=== PATIENT | male | born 1950 | race Caucasian/White ===

== ENCOUNTER 2018-04-13 16:48 | Emergency (ER) | payer MEDICARE ==
[~2018-04-13] VITALS: Ht 167.6 cm; Wt 99.6 kg
[~2018-04-13 16:48] MED LIST: ASPI325T17 PO; ATEN50TA41 PO; BUPR150T73 PO; CINN500C2 PO; DOXA4TAB3 PO; FLUT16SP2 NAS; LAMO200T3 PO; LAMO25TA5 PO; LISI40TA PO; LOVA40TA2 PO; OMEG500C3 PO; SAW160CA4 PO; TERA5CAP3 PO; TRIA1TAB3 PO
[2018-04-13 17:24] LABS: BASOPHILS # (AUTO) 0.01 x10^3/uL (0-0.1); BASOPHILS % (AUTO) 0 % (0-1); EOSINOPHILS # (AUTO) 0.18 x10^3/uL (0-0.4); EOSINOPHILS % (AUTO) 2 % (1-7); LYMPHOCYTES # (AUTO) 0.77 x10^3/uL (1-3.4); LYMPHOCYTES % (AUTO) 11 % (22-44); MD NO; MEAN CORPUSCULAR HEMOGLOBIN 31.1 pg (27.5-34.5); MEAN CORPUSCULAR HGB CONC 34.4 g/dL (33.2-36.2); MEAN CORPUSCULAR VOLUME 90.4 fL (81-97); MEAN PLATELET VOLUME 7.3 fL (7.4-10.4); MONOCYTES # (AUTO) 1.01 x10^3/uL (0.2-0.8); MONOCYTES % (AUTO) 14 % (2-9); NEUTROPHILS # (AUTO) 5.32 x10^3/uL (1.8-6.8); NEUTROPHILS % (AUTO) 73 % (42-75); PLATELET COUNT 165 x10^3/uL (130-400); RED BLOOD COUNT 5.21 x10^6/uL (4.38-5.82); RED CELL DISTRIBUTION WIDTH 12.7 % (9.4-14.8)
[2018-04-13] MEDS ORDERED: SODIUM CHLORIDE FLUSH 10ML SYR IVF ONE (17:30)
[2018-04-13 17:32] LABS: INTERNATIONAL NORMALIZED RATIO 0.99 (0.93-1.1); PROTHROMBIN TIME 10.3 Seconds (9.6-11.5)
[2018-04-13 17:35] LABS: ANION GAP 8 mmol/L (5-15); CALCIUM 8.3 mg/dL (8.5-10.1); CHLORIDE 116 mmol/L (98-107); CREATININE 0.99 mg/dL (0.7-1.3)
[2018-04-13 17:36] LABS: ALANINE AMINOTRANSFERASE 33 U/L (12-78); ALBUMIN 3.4 g/dL (3.4-5.0)
[2018-04-13 17:38] LABS: ALKALINE PHOSPHATASE 64 U/L (45-117); BILIRUBIN,TOTAL 0.7 mg/dL (0.2-1.0); TOTAL PROTEIN 6.7 g/dL (6.4-8.2)
[2018-04-13] MEDS ORDERED: BUPR200T2 PO (18:04)
[2018-04-13] MEDS ORDERED: LAMO150T3 PO (18:04)
[2018-04-13 18:17] VITALS: BP 118/60
[2018-04-13] MEDS ORDERED: SODIUM CHLORIDE 0.9% 1,000ML IVBOLUS ONE (18:30)
[2018-04-13 20:29] LABS: MICROSCOPIC NOT IND
[2018-04-13 20:32] LABS: CULTURE INDICATED? NO
[2018-04-13] MEDS ORDERED: OMNIPAQUE 350 MG/ML, 100ML BOTTLE ONE (23:38)
== END 2018-04-13 21:17 | disposition home or self-care (01) ==
LOC: ED 18:23
DX: R19.7 Diarrhea, unspecified (principal); N28.1 Cyst of kidney, acquired; I10 Essential (primary) hypertension; E11.9 Type 2 diabetes mellitus without complications; R79.1 Abnormal coagulation profile; Z86.73 Personal history of transient ischemic attack (TIA), and cerebral infarction without residual deficits
CPT/HCPCS: 36415; 74177; 80053; 81003; 83690; 85025; 85610; 85730; 96360; 96361; 99285; J7030; Q9967

== ENCOUNTER 2021-03-20 14:57 | Observation (INO) | payer MEDICARE ==
[~2021-03-20] VITALS: Ht 167.6 cm; Wt 102.3 kg
[~2021-03-20 14:57] MED LIST changes: +BUPR200T2 PO; +LAMO150T3 PO; -LISI40TA PO; +LISI40TA9 PO
--- NOTE | 2021-03-20 16:00 | NUR ---
Pt reports L side eye droop starting yesterday. Denies all other s/sx including no n/v, PINZON, dizziness, vision changes, loss for words. Pt states his L eye is sensitive to light, PERRLA noted. Pt states his L eye vision is impaired due to the lid drooping, but when this RN lifted eye pt denied any vision compromise. Mild periorbital swelling noted, pt reports his eye stinging when he "put drops in it yesterday."
--- NOTE | 2021-03-20 16:26 | NUR ---
Pt ambulatory to bathroom for UA and now pt to imaging.
[2021-03-20 16:44] LABS: MICROSCOPIC NOT IND
--- NOTE | 2021-03-20 18:02 | NUR ---
Pt to imaging.
[2021-03-20 18:17] LABS: HCT (SEDRATE) 46.3 % (39.2-51.8)
[2021-03-20 18:29] LABS: C-REACTIVE PROTEIN, QUANT 0.05 mg/dL (0.02-0.49)
[2021-03-20 18:39] LABS: FREE T4 (FREE THYROXINE) 0.74 ng/dL (0.76-1.46)
[2021-03-20] MEDS ORDERED: GADOTERATE 10 MMOL/20ML SYR ONE (18:41)
[2021-03-20 18:44] LABS: BASOPHILS % (AUTO) 1 % (0-1); EOSINOPHILS % (AUTO) 5 % (1-7); LYMPHOCYTES % (AUTO) 17 % (22-44); MEAN CORPUSCULAR HGB CONC 34.9 g/dL (33.2-36.2); MEAN PLATELET VOLUME 7.3 fL (7.4-10.4); MONOCYTES % (AUTO) 12 % (2-9); NEUTROPHILS % (AUTO) 65 % (42-75); PLATELET COUNT 151 x10^3/uL (130-400); RED BLOOD COUNT 5.21 x10^6/uL (4.38-5.82)
--- NOTE | 2021-03-20 19:02 | NUR ---
Pt remains in imaging. Report given to josef RN and FARZANA Anne RN.
--- NOTE | 2021-03-20 19:05 | NUR ---
RECEIVED REPORT FROM JP PARADA. TRANSFER OF CARE. PT TO MOVE TO FLOOR WHEN BACK FROM IMAGING.
[2021-03-20 19:18] LABS: ALANINE AMINOTRANSFERASE 41 U/L (12-78); ALBUMIN 3.6 g/dL (3.4-5.0); ANION GAP 7 mmol/L (5-15); CALCIUM 8.7 mg/dL (8.5-10.1); CHLORIDE 115 mmol/L (98-107)
[2021-03-20 19:20] LABS: ALKALINE PHOSPHATASE 70 U/L (45-117); BILIRUBIN,TOTAL 0.3 mg/dL (0.2-1.0); TOTAL PROTEIN 6.9 g/dL (6.4-8.2)
[2021-03-20] MEDS ORDERED: QUET100T4 PO (19:47)
[2021-03-20 19:49] VITALS: BP 165/89
[2021-03-20] MEDS ORDERED: BISACODYL 10 MG SUPP PR PRN (20:30)
[2021-03-20] MEDS ORDERED: ENOXAPARIN 40 MG/0.4 ML SQ SCH (20:30)
[2021-03-20] MEDS ORDERED: POLYETHYLENE GLYCOL 17 GM PACKET PO PRN (20:30)
[2021-03-20] MEDS ORDERED: ACETAMINOPHEN 325 MG TABLET PO PRN (20:30)
[2021-03-20] MEDS ORDERED: DOCUSATE 100 MG CAPSULE PO PRN (20:30)
[2021-03-20] MEDS ORDERED: PROMETHAZINE 25 MG/ML, 1ML IM PRN (20:30)
[2021-03-20] MEDS ORDERED: ONDANSETRON ODT 4 MG PO PRN (20:30)
[2021-03-20] MEDS ORDERED: ONDANSETRON 2MG/ML, 2ML IVPush PRN (20:30)
[2021-03-20] MEDS ORDERED: hydrALAzine 20 MG/ML, 1ML IVPush PRN (20:30)
[2021-03-20] MEDS ORDERED: OXYcodone IR 5MG TABLET PO PRN (20:30)
[2021-03-20] MEDS ORDERED: ATENOLOL 50 MG TABLET PO SCH (21:00)
[2021-03-20] MEDS ORDERED: ASPIRIN 325 MG TABLET PO SCH (21:00)
[2021-03-20] MEDS ORDERED: TERAZOSIN 5MG CAPSULE PO SCH (21:00)
[2021-03-20] MEDS ORDERED: BUPROPION SR 150 MG TABLET PO SCH (21:00)
[2021-03-20] MEDS ORDERED: LOVASTATIN 40 MG TABLET PO SCH (21:00)
[2021-03-20] MEDS ORDERED: QUETIAPINE 100MG TABLET PO SCH (21:00)
[2021-03-20] MEDS ORDERED: FLUTICASONE NASAL SPRAY 16GM NAS SCH (21:00)
[2021-03-20] MEDS: LAMOTRIGINE 200 MG TABLET PO SCH (21:17)
[2021-03-20 21:21] VITALS: BP 164/92
[2021-03-20] MEDS ORDERED: BUPROPION SR 150 MG TABLET PO ONE (22:00)
[2021-03-21 01:43] VITALS: BP 121/71
[2021-03-21 06:19] LABS: BASOPHILS % (AUTO) 1 % (0-1); EOSINOPHILS % (AUTO) 6 % (1-7); LYMPHOCYTES % (AUTO) 19 % (22-44); MEAN CORPUSCULAR HEMOGLOBIN 31.1 pg (27.5-34.5); MEAN CORPUSCULAR HGB CONC 34.4 g/dL (33.2-36.2); MEAN PLATELET VOLUME 7.6 fL (7.4-10.4); MONOCYTES % (AUTO) 11 % (2-9); NEUTROPHILS % (AUTO) 64 % (42-75); PLATELET COUNT 161 x10^3/uL (130-400); RED CELL DISTRIBUTION WIDTH 13.4 % (9.4-14.8)
[2021-03-21 06:21] LABS: ALBUMIN 3.4 g/dL (3.4-5.0); ANION GAP 8 mmol/L (5-15); CALCIUM 9.6 mg/dL (8.5-10.1); CHLORIDE 116 mmol/L (98-107)
[2021-03-21 06:27] LABS: ALANINE AMINOTRANSFERASE 38 U/L (12-78); ALKALINE PHOSPHATASE 57 U/L (45-117); BILIRUBIN,TOTAL 0.7 mg/dL (0.2-1.0); CHOL/HDL RATIO 5.5; CHOLESTEROL, TOTAL 159 mg/dL (140-239); CREATININE 0.94 mg/dL (0.7-1.3); HDL CHOL % 18 % (26-37); HDL CHOLESTEROL (DIRECT) 29 mg/dL (40-60); LDL CHOLESTEROL,CALCULATED 76 mg/dL (54-169); LDL/HDL RATIO 2.6 (0.5-3.0); TOTAL PROTEIN 6.9 g/dL (6.4-8.2); TRIGLYCERIDES 271 mg/dL (50-200); VLDL CHOLESTEROL 54 mg/dL (0-25)
[2021-03-21 07:31] VITALS: BP 126/75
[2021-03-21] MEDS: LAMOTRIGINE 200 MG TABLET PO SCH (08:59)
[2021-03-21] MEDS ORDERED: TERAZOSIN 5MG CAPSULE PO SCH (09:00)
[2021-03-21] MEDS ORDERED: ASPIRIN 325 MG TABLET PO SCH (09:00)
[2021-03-21] MEDS ORDERED: LOVASTATIN 40 MG TABLET PO SCH (09:00)
[2021-03-21] MEDS ORDERED: SAW PALMETTO PO SCH (09:00)
[2021-03-21] MEDS ORDERED: ATENOLOL 50 MG TABLET PO SCH (09:00)
[2021-03-21] MEDS ORDERED: BUPROPION SR 150 MG TABLET PO SCH (09:00)
[2021-03-21] MEDS ORDERED: LISINOPRIL 40 MG TABLET PO SCH (09:00)
[2021-03-21 12:01] VITALS: BP 151/77
== END 2021-03-21 15:21 | disposition home or self-care (01) ==
LOC: ED 17:03 → EDIP 17:52 → INTOOBSV 17:52 → 4EST 19:37 → DCLOUNGE 03-21 15:10
PROVIDERS: ADMIT Internal Medicine; ATTEND Family Medicine
DX: H02.409 Unspecified ptosis of unspecified eyelid (principal); H55.89 Other irregular eye movements; I10 Essential (primary) hypertension; E11.9 Type 2 diabetes mellitus without complications; R20.2 Paresthesia of skin; E78.00 Pure hypercholesterolemia, unspecified; G47.30 Sleep apnea, unspecified; F31.9 Bipolar disorder, unspecified; Z86.73 Personal history of transient ischemic attack (TIA), and cerebral infarction without residual deficits; Z86.69 Personal history of other diseases of the nervous system and sense organs; Z79.82 Long term (current) use of aspirin; Z79.899 Other long term (current) drug therapy; Z87.891 Personal history of nicotine dependence
CPT/HCPCS: 36415; 70450; 70543; 70544; 70547; 70553; 80053; 80061; 81003; 83036; 83519; 83735; 84100; 84439; 84443; 84445; 85025; 85651; 86140; 97163; 97165; 99285; A9575; G0378

== ENCOUNTER → 2021-04-18 | Outpatient (CLI) | payer MEDICARE ==
[~2021-04-18] MED LIST changes: +OMNIPAQUE 350 MG/ML, 75ML BOTTLE ONE; +QUET100T4 PO
== END | disposition home or self-care (01) ==
LOC: CFH 14:00
PROVIDERS: ATTEND Specialist
DX: G70.00 Myasthenia gravis without (acute) exacerbation (principal); K80.20 Calculus of gallbladder without cholecystitis without obstruction
CPT/HCPCS: 71260; Q9967